=== PATIENT | female | born 1985 | race American Indian/Alaskan Native ===

== ENCOUNTER 2019-02-23 21:48 | Emergency (ER) | payer MEDICAID ==
[~2019-02-23] VITALS: Ht 172.7 cm; Wt 90.7 kg
[2019-02-23 21:54] VITALS: BP_SYST 121
[2019-02-23] MEDS ORDERED: IBUPROFEN 800 MG TABLET PO ONE (22:15)
[2019-02-23 22:26] LABS: BILIRUBIN,URINE NEGATIVE (NEGATIVE); BLOOD, URINE NEGATIVE (NEGATIVE); CLARITY/URINE CLEAR (CLEAR); COLOR,URINE YELLOW (YELLOW); GLUCOSE,URINE NEGATIVE (NEGATIVE); KETONES,URINE NEGATIVE (NEGATIVE); LEUKOCYTE ESTERASE ,URINE 1+ (NEGATIVE); NITRITE, URINE NEGATIVE (NEGATIVE); PROTEIN URINE NEGATIVE (NEGATIVE); UROBILINOGEN,URINE 0.2 (0.2-1.0)
[2019-02-23 22:33] LABS: RBC,URINE 0-3 /HPF (0-3)
[2019-02-23 22:34] LABS: BACTERIA,URINE MODERATE /HPF (None Seen)
[2019-02-23 22:37] LABS: BASOPHILS # (AUTO) 0.2 K/uL (0.0-0.2); BASOPHILS % (AUTO) 1.3 % (0.0-2.0); EOSINOPHILS # (AUTO) 0.2 K/uL (0.0-0.4); EOSINOPHILS % (AUTO) 1.8 % (0.0-4.0); HEMATOCRIT 40.5 % (36-48); HEMOGLOBIN 13.1 g/dL (12.0-16.0); LYMPHOCYTES # (AUTO) 3.6 K/uL (1.0-5.5); LYMPHOCYTES % (AUTO) 30.5 % (20.5-51.5); MEAN CORPUSCULAR HEMOGLOBIN 25 pg (27-31); MEAN CORPUSCULAR HGB CONC 33 % (32-36); MEAN CORPUSCULAR VOLUME 78 fL (79.0-98.0); MONOCYTES # (AUTO) 0.8 K/uL (0.0-1.0); MONOCYTES % (AUTO) 6.6 % (1.7-9.3); NEUTROPHILS # (AUTO) 7.1 K/uL (1.8-7.7); NEUTROPHILS % (AUTO) 59.8 % (40.0-70.0); PLATELET COUNT (AUTO) 265 K/uL (130-430); RED BLOOD CELL COUNT(AUTO) 5.19 MIL/uL (4.2-6.2); RED CELL DISTRIBUTION WIDTH 13.9 % (9.0-15.0); WHITE BLOOD COUNT (AUTO) 11.8 K/uL (4.8-10.8)
[2019-02-23 23:03] LABS: CALCIUM 8.9 mg/dL (8.4-11.0); CREATININE 0.75 mg/dL (0.55-1.30); POTASSIUM 3.8 mmol/L (3.5-5.1)
[2019-02-23 23:08] LABS: ALBUMIN 3.4 g/dL (3.4-4.8); TOTAL BILIRUBIN 0.1 mg/dL (0.0-1.0)
[2019-02-23 23:13] LABS: ERYTHROCYTE SEDIMENTATION RATE 25 MM/HR (0-20)
[2019-02-23] MEDS ORDERED: NITROFURANTOIN MONOHYD/M-CRYST 100 MG CAPSULE PO ONE (23:30)
[2019-02-24] VITALS: BP_SYST 120
== END 2019-02-24 | disposition home or self-care (01) ==
LOC: SED 21:48
DX: N39.0 Urinary tract infection, site not specified (principal); R20.2 Paresthesia of skin; R03.0 Elevated blood-pressure reading, without diagnosis of hypertension
CPT/HCPCS: 36415; 80053; 81000-TC; 81025; 85025; 85651-TC; 87086; 99283

== ENCOUNTER 2019-10-08 16:44 | Emergency (ER) | payer MEDICAID ==
[~2019-10-08] VITALS: Ht 172.7 cm; Wt 90.7 kg
[2019-10-08 16:45] VITALS: BP_SYST 124
--- NOTE | 2019-10-08 16:45 | NUR ---
Patient triaged and placed in waiting room. VSS and patient appears in no acute distress at this time. Accompanied by KIDS, awaiting available bed, and MD notified of need for MSE.
--- NOTE | 2019-10-08 18:24 | NUR ---
Patient to ER bed H1 to gown for evaluation. Side rails up.
--- NOTE | 2019-10-08 18:29 | NUR ---
Patient to ER bed h1 for evaluation. Side rails up.
--- NOTE | 2019-10-08 18:29 | NUR ---
ER Dr. Randhawa at bedside examining patient.
--- NOTE | 2019-10-08 18:31 | NUR ---
Patient arrived in the ED c/o cough, fevers, bodyaches that started yesterday. Denied any chest pain or shortness of breath. Denied any fevers, chills, nausea or vomiting. Patient is alert and oriented x4, respirations even and unlabored, speaking in full sentences and ambulating with a steady gait. VSS, pain level 0/10. Informed of approximate wait time. Instructed to notify ED staff for any changes in condition or worsening of symptoms while waiting to be seen by a provider. Patient verbalized understanding.
[2019-10-08] MEDS ORDERED: ONDANSETRON 4 MG ODT TAB PO ONE (18:45)
--- NOTE | 2019-10-08 18:58 | NUR ---
ER Dr. Randhawa at bedside re-examining patient.
--- NOTE | 2019-10-08 19:08 | NUR ---
Report given and care transferred to ELISABETH Valencia.
[2019-10-08 19:21] VITALS: BP_SYST 124
--- NOTE | 2019-10-08 19:21 | NUR ---
Patient given written and verbal discharge instructions and verbalizes understanding. ER MD discussed with patient the results and treatment provided. Patient in stable condition. ID arm band removed. Rx of Motrin, Tamiflu, Promethazine, and Zofran given. Patient educated on pain management and to follow up with PMD. Pain Scale 0. Opportunity for questions provided and answered. Medication side effect fact sheet provided.
== END 2019-10-08 19:21 | disposition home or self-care (01) ==
LOC: SED 16:44
DX: J11.1 Influenza due to unidentified influenza virus with other respiratory manifestations (principal)
CPT/HCPCS: 86710; 99283; Q0162; 36415

== ENCOUNTER 2021-07-20 15:33 | Emergency (ER) | payer MEDICAID ==
[~2021-07-20] VITALS: Ht 172.7 cm; Wt 90.7 kg
[2021-07-20 15:51] VITALS: BP_SYST 137
--- NOTE | 2021-07-20 15:51 | NUR ---
Pt to bed 4 for evaluation.
--- NOTE | 2021-07-20 16:04 | NUR ---
Dr. Garcia at bedside to evaluate.
--- NOTE | 2021-07-20 16:10 | NUR ---
Pt is AAO and ambulatory reporting worsening lower back pain x 2 days. Pt has chronic back issues and history of unmanaged Diabetes. Pt rates back pain 8/10 on pain scale.
[2021-07-20] MEDS ORDERED: KETOROLAC TROMETHAMINE 60 MG/2 ML VIAL IM ONE (16:15)
--- NOTE | 2021-07-20 16:49 | NUR ---
Marina marcial in ED - 07/20/21 at 1719 by CRISTIAN Admit orders received from Dr. Henriquez. Tele bed ordered.
[2021-07-20] MEDS ORDERED: MORPHINE 4 MG INJ. 4 MG/ML VIAL IM ONE (17:30)
--- NOTE | 2021-07-20 17:45 | NUR ---
Pt is resting quietly in no distress awaiting disposition.
[2021-07-20] MEDS ORDERED: HYDR-3917 PO (17:49)
[2021-07-20] MEDS ORDERED: IBUP-1971 PO (17:49)
[2021-07-20 18:05] VITALS: BP_SYST 137
--- NOTE | 2021-07-20 18:05 | NUR ---
Patient given written and verbal discharge instructions and verbalizes understanding. Dr. Jose RG MD discussed with patient the results and treatment provided. Patient in stable condition. ID arm band removed. Rx of [place] and Ibuprofen given. Patient educated on pain management and to follow up with PMD. Pain Scale 0/10. Opportunity for questions provided and answered. Medication side effect fact sheet provided.
== END 2021-07-20 18:05 | disposition home or self-care (01) ==
LOC: SED 15:33
DX: M54.50 Low back pain, unspecified (principal); E11.9 Type 2 diabetes mellitus without complications
CPT/HCPCS: 81002; 81025; 96372; 99283; J1885; J2270